=== PATIENT | female | born 1985 | race Asian ===

== ENCOUNTER 2023-05-10 07:01 | Emergency (ER) | payer OTHER ==
[~2023-05-10] VITALS: Ht 154.9 cm; Wt 61.2 kg
[2023-05-10] MEDS ORDERED: LIDOCAINE 1%-EPI 1:100,000 20 ML VIAL ONE (07:29)
[2023-05-10] MEDS: TDAP [DIPH/PERTUSSIS/TET] 0.5 ML VIAL IM ONE (07:30)
[2023-05-10] MEDS: LIDOCAINE 1%-EPI 1:100,000 20 ML VIAL TP ONE (07:47)
[2023-05-10] MEDS ORDERED: TDAP [DIPH/PERTUSSIS/TET] 0.5 ML VIAL IM ONE (07:48)
[2023-05-10 08:18] VITALS: BP 141/98; TEMP 97.8; O2SAT 100
== END 2023-05-10 08:18 | disposition home or self-care (01) ==
LOC: ER 07:04
DX: S61.412A Laceration without foreign body of left hand, initial encounter (principal); I10 Essential (primary) hypertension; F17.200 Nicotine dependence, unspecified, uncomplicated; Z90.49 Acquired absence of other specified parts of digestive tract; Z60.2 Problems related to living alone; W26.0XXA Contact with knife, initial encounter; Y93.89 Activity, other specified; Y92.89 Other specified places as the place of occurrence of the external cause; Y99.8 Other external cause status
CPT/HCPCS: 12001; 90471; 90715; 99283; J3490